=== PATIENT | female | born 1980 | race Caucasian/White ===

== ENCOUNTER 2023-10-12 10:32 | Emergency (ER) | payer SELFPAY ==
[~2023-10-12] VITALS: Ht 160 cm; Wt 95.9 kg
[2023-10-12] MEDS ORDERED: IBUP200C27 PO (10:43)
[2023-10-12] MEDS ORDERED: CYCL-707 PO (15:20)
[2023-10-12] MEDS ORDERED: LIDO5DIS41 TOP (15:20)
[2023-10-12 15:26] VITALS: BP 114/71; TEMP 98.4; O2SAT 98
== END 2023-10-12 15:33 | disposition home or self-care (01) ==
LOC: M ED 10:32
DX: S23.3XXA Sprain of ligaments of thoracic spine, initial encounter (principal); S93.402A Sprain of unspecified ligament of left ankle, initial encounter; V58.2XXA Person on outside of pick-up truck or van injured in noncollision transport accident in nontraffic accident, initial encounter; Y92.89 Other specified places as the place of occurrence of the external cause; Y93.89 Activity, other specified; Y99.8 Other external cause status; M79.7 Fibromyalgia; L40.52 Psoriatic arthritis mutilans; F17.200 Nicotine dependence, unspecified, uncomplicated; Z88.8 Allergy status to other drugs, medicaments and biological substances

== ENCOUNTER 2024-05-07 14:04 | Emergency (ER) | payer SELFPAY ==
[~2024-05-07] VITALS: Ht 160 cm; Wt 90.2 kg
[~2024-05-07 14:04] MED LIST: CYCL-707 PO; IBUP200C27 PO; LIDO5DIS41 TOP
[2024-05-07] MEDS ORDERED: DOXY-323 PO (16:08)
[2024-05-07] MEDS: DOXYCYCLINE HYCLATE 100MG TABLET PO ONE (16:18)
[2024-05-07] MEDS: IBUPROFEN 600MG TAB PO ONE (16:19)
[2024-05-07 16:31] VITALS: BP 132/78; TEMP 97.6; O2SAT 98
== END 2024-05-07 16:34 | disposition home or self-care (01) ==
LOC: M ED 14:04
DX: L03.012 Cellulitis of left finger (principal); F17.200 Nicotine dependence, unspecified, uncomplicated; M79.7 Fibromyalgia; Z88.5 Allergy status to narcotic agent; Z88.8 Allergy status to other drugs, medicaments and biological substances